=== PATIENT | male | born 1970 | race Two or more races ===

== ENCOUNTER 2019-07-09 01:56 | Emergency (ER) | payer SELFPAY ==
[~2019-07-09] VITALS: Ht 177.8 cm; Wt 127.3 kg
[2019-07-09 02:08] VITALS: BP 148/101
== END 2019-07-09 03:16 | disposition home or self-care (01) ==
LOC: ER 01:58
DX: M25.811 Other specified joint disorders, right shoulder (principal); X58.XXXA Exposure to other specified factors, initial encounter; Y93.89 Activity, other specified; Y92.89 Other specified places as the place of occurrence of the external cause; Y99.8 Other external cause status
CPT/HCPCS: 73030; 99283